=== PATIENT | male | born 1985 | race Caucasian/White ===

== ENCOUNTER 2018-06-10 19:17 | Emergency (ER) | payer OTHER ==
[~2018-06-10] VITALS: Ht 172.7 cm; Wt 77.1 kg
[2018-06-10 19:31] VITALS: BP_SYST 138
--- NOTE | 2018-06-10 19:40 | NUR ---
Patient to ER bed h1 for evaluation.
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
--- NOTE | 2018-06-10 19:43 | NUR ---
Written and verbal consent obtained from patient for blood alcohol, name and verified by patient. Disinfected patient's skin with iodine that did not contain alcohol or other volatile organic compound. Collected the blood from the subject named by venipuncture, in the presence of Officer Danny Hernandez. Used a sterile, dry hypodermic needle and dry vacuum blood collection. Two dry vacuum blood collection was supplied by the officer named above. Withdrew a specimen of blood from right arm of the subject named above. Inverted both blood tube several times to ensure that the preservative and anticoagulant were thoroughly mixed in the blood specimen. I initialed both blood tube label for identification. The labeled blood tubes was handed directly to the Officer named above. The blood tubes stopper remained in place while I had possession of the blood tubes. The Officer placed tubes into envelope and sealed it in my presence. Envelope initialed by myself and Officer named above. Patient tolerated well, bandage applied, and bleeding controlled.
--- NOTE | 2018-06-10 19:46 | NUR ---
DENIS Horta at bedside examining patient.
[2018-06-10 19:57] VITALS: BP_SYST 134
--- NOTE | 2018-06-10 19:58 | NUR ---
Note undone in EDM - 06/10/18 at 1958 by [email or web address] Patient given written and verbal discharge instructions and verbalizes understanding. ER MD Horta discussed with patient the results and treatment provided. Patient in stable condition. ID arm band removed. Rx of Ibuprofen given. Patient educated on pain management and to follow up with PMD. Pain Scale 1. MD Horta aware. Opportunity for questions provided and answered. Medication side effect fact sheet provided.
[2018-06-10] MEDS ORDERED: IBUPROFEN 800 MG TABLET PO ONE (20:00)
[2018-06-11] MEDS ORDERED: AMOXICILLIN 500 MG CAPSULE ONE (04:06)
== END 2018-06-10 19:58 ==
LOC: SED 19:17
DX: S16.1XXA Strain of muscle, fascia and tendon at neck level, initial encounter (principal); V89.2XXA Person injured in unspecified motor-vehicle accident, traffic, initial encounter; Y93.89 Activity, other specified; Y92.410 Unspecified street and highway as the place of occurrence of the external cause; Y99.8 Other external cause status
CPT/HCPCS: 99283